=== PATIENT | male | born 1960 | race Asian ===

== ENCOUNTER 2020-09-08 10:22 | Inpatient (IN) | payer OTHER ==
[~2020-09-08] VITALS: Ht 182.9 cm; Wt 73.0 kg
[2020-09-08] MEDS ORDERED: IV NS 0.9% 500 ML IV ONE (10:30)
--- NOTE | 2020-09-08 10:30 | NUR ---
[id number] frm snf for noted ams. covid + 2 days ago. hypotensive area captain. Hypoxic satting 80's on ra. trach. bg 180 area captain. Patient a/ox3, placed on 7LPM via t-piece. No distress noted.
--- NOTE | 2020-09-08 11:00 | NUR ---
covid swab sent. blood drawn and sent to lab.
[2020-09-08 11:07] LABS: BASOPHILS % (AUTO) 0.1 % (0.0-2.0); HEMATOCRIT 29 % (39-51); HEMOGLOBIN 9.2 g/dL (13.5-17.5); LYMPHOCYTES # (AUTO) 0.6 /CMM (0.8-4.8); LYMPHOCYTES % (AUTO) 14.4 % (20.0-44.0); MEAN CORPUSCULAR HGB CONC 32 g/dl (31.0-36.0); MEAN CORPUSCULAR VOLUME 91 fL (80-96); MONOCYTES # (AUTO) 0.4 /CMM (0.1-1.30); MONOCYTES % (AUTO) 9.3 % (2.0-12.0); NEUTROPHILS # (AUTO) 3.2 /CMM (1.8-8.9); NEUTROPHILS % (AUTO) 76.2 % (43.0-81.0); PLATELET COUNT (AUTO) 162 /CMM (150-450); RED BLOOD CELL COUNT(AUTO) 3.14 MIL/uL (4.5-6.0); WHITE BLOOD COUNT (AUTO) 4.2 K/uL (4.3-11.0)
[2020-09-08 11:17] LABS: CALCIUM, SERUM 8.2 mg/dL (8.5-10.1); CREATININE 1.3 mg/dL (0.6-1.3); POTASSIUM 4.4 mmol/L (3.5-5.1)
[2020-09-08 11:29] LABS: ALBUMIN 2.1 g/dL (3.4-5.0); BILIRUBIN,TOTAL 0.3 mg/dL (0.2-1.0); TOTAL PROTEIN, SERUM 6.5 g/dL (6.4-8.2)
[2020-09-08] MEDS ORDERED: REMDESIVIR (CHARGED) 200 MG, *LOADING DOSE 1 EA in IV NS 0.9% 210 ML IV ONE ×2 (12:00→19:30)
--- NOTE | 2020-09-08 12:00 | NUR ---
rapid covid positive.
--- NOTE | 2020-09-08 12:08 | NUR ---
MOVE SHEET SUBMITTED
[2020-09-08] MEDS ORDERED: DOCU-264 PO (12:25)
[2020-09-08] MEDS ORDERED: MIRT30TA7 PO (12:25)
[2020-09-08] MEDS ORDERED: DIVA500T54 PO (12:25)
[2020-09-08] MEDS ORDERED: QUET400T53 PO (12:25)
[2020-09-08] MEDS ORDERED: METF-442 PO (12:25)
[2020-09-08] MEDS ORDERED: LEVOFLOXACIN 750 MG /D5W 150ML 150 ML IV ONE ×2 (12:30→12:56)
[2020-09-08] MEDS ORDERED: PIPERACILLIN /TAZOBACTAM 3.375 G in IV D5W 50 ML IV ONE (12:30)
[2020-09-08] MEDS ORDERED: BUPR-319 PO (13:08)
[2020-09-08 13:13] LABS: C-REACTIVE PROTEIN 17.3 mg/dL (0.0-0.9)
[2020-09-08] MEDS ORDERED: PANT40TA49 PO (13:28)
[2020-09-08] MEDS ORDERED: AMIN887L PO (13:28)
[2020-09-08] MEDS ORDERED: QUET300T2 PO (13:28)
[2020-09-08] MEDS ORDERED: BUPR150T10 PO (13:28)
[2020-09-08] MEDS ORDERED: HEPA1DIS12 SUBCUT (13:28)
[2020-09-08] MEDS ORDERED: LORA-259 PO (13:28)
[2020-09-08] MEDS ORDERED: MAGN400T8 PO (13:28)
[2020-09-08] MEDS ORDERED: MORP30TA59 PO (13:28)
[2020-09-08] MEDS ORDERED: DOCU-141 PO (13:28)
[2020-09-08] MEDS ORDERED: INSU100V39 SQ (13:28)
[2020-09-08] MEDS ORDERED: MORP10SY PO (13:28)
[2020-09-08] MEDS ORDERED: ZOLP5TAB2 PO (13:28)
[2020-09-08] MEDS ORDERED: IPRA3AMP23 IH (13:28)
[2020-09-08] MEDS ORDERED: BENZ-13 PO (13:28)
[2020-09-08] MEDS ORDERED: ONDA4TAB11 PO (13:28)
[2020-09-08] MEDS ORDERED: MELA3CAP2 PO (13:28)
[2020-09-08] MEDS ORDERED: GLIP5TAB13 PO (13:28)
[2020-09-08] MEDS ORDERED: FERR325T23 PO (13:28)
--- NOTE | 2020-09-08 13:37 | NUR ---
CALLED DR. OMORE'S EXCHANGE, NO ANSWER, LEFT A MESSAGE.
[2020-09-08 13:38] LABS: ABG BASE EXCESS 2.5 mmol/L; ABG OXYGEN SATURATION 96.5 % (92.0-98.5); ABG PCO2 35.1 mmHg (35.0-45.0); ABG PH 7.485 (7.350-7.450); ABG PO2 94.7 mmHg (75.0-100.0); AaDO2 150.1 mmHg; COHb 0.3 % (0.5-1.5); MetHb 0.5 % (0.0-1.5); O2Hb 95.7 % (94.0-97.0); SITE, ABG Right Radial; VENT MODE, BG 5 L T-PIECE
[2020-09-08] MEDS ORDERED: DEXAMETHASONE SOD PHOSPHATE 10 MG/ML VIAL ONE (17:44)
[2020-09-08] MEDS ORDERED: CEFTRIAXONE 1GM BAG (ER ONLY) 50 ML IV ONE (17:44)
[2020-09-08] MEDS: CEFTRIAXONE 1 G in IV D5W 50 ML IV SCH (17:48)
[2020-09-08] MEDS ORDERED: ENOXAPARIN SODIUM 40 MG/0.4 ML DISP.SYRIN SQ ONE (17:48)
[2020-09-08] MEDS: DEXAMETHASONE SOD PHOSPHATE 10 MG/ML VIAL IV SCH ×2 (17:48→18:07)
[2020-09-08] MEDS: ENOXAPARIN SODIUM 40 MG/0.4 ML DISP.SYRIN SQ SCH (17:53)
--- NOTE | 2020-09-08 19:23 | NUR ---
PATIENT RESTING, ALL NEEDS ATTENDED, KEPT COMFORTABLE, WILL CONTINUE TO MONITOR.
--- NOTE | 2020-09-08 23:50 | NUR ---
pt requesting ativan. med rec updated prior. per honey tariq to give ativan, phone order carried out./
[2020-09-09] MEDS ORDERED: LORAZEPAM INJ 2 MG/ML VIAL ONE ×2 (00:47→20:34)
[2020-09-09 06:08] LABS: HEMATOCRIT 29 % (39-51); HEMOGLOBIN 9.6 g/dL (13.5-17.5); LYMPHOCYTES # (AUTO) 0.3 /CMM (0.8-4.8); LYMPHOCYTES % (AUTO) 3.9 % (20.0-44.0); MEAN CORPUSCULAR HGB CONC 33 g/dl (31.0-36.0); MEAN CORPUSCULAR VOLUME 92 fL (80-96); MONOCYTES # (AUTO) 0.4 /CMM (0.1-1.30); MONOCYTES % (AUTO) 4.5 % (2.0-12.0); NEUTROPHILS % (AUTO) 91.6 % (43.0-81.0); PLATELET COUNT (AUTO) 163 /CMM (150-450); RED BLOOD CELL COUNT(AUTO) 3.19 MIL/uL (4.5-6.0); WHITE BLOOD COUNT (AUTO) 8.7 K/uL (4.3-11.0)
[2020-09-09 06:24] LABS: ALBUMIN 2.3 g/dL (3.4-5.0); BILIRUBIN,DIRECT 0.2 mg/dL (0.0-0.2); BILIRUBIN,TOTAL 0.3 mg/dL (0.2-1.0); CALCIUM, SERUM 8.1 mg/dL (8.5-10.1); CREATININE 1.2 mg/dL (0.6-1.3); POTASSIUM 4.5 mmol/L (3.5-5.1); TOTAL PROTEIN, SERUM 7.2 g/dL (6.4-8.2)
--- NOTE | 2020-09-09 08:00 | NUR ---
PATIENT Edouard/OX4, ON 10LPM VIA T-PIECE. NO DISTRESS NOTED. NEEDS ATTENDED. ASSISTED WITH URINAL. Addendum: 09/09/20 at 1616 by BLAKEANCES CORRECTION: 6LPM NOT 10LPM
[2020-09-09] MEDS ORDERED: DEXAMETHASONE SOD PHOSPHATE 10 MG/ML VIAL ONE (08:28)
[2020-09-09] MEDS: DEXAMETHASONE SOD PHOSPHATE 10 MG/ML VIAL IV SCH (09:06)
--- NOTE | 2020-09-09 12:00 | NUR ---
PATIENT RESTING, NO DISTRESS NOTED.
--- NOTE | 2020-09-09 15:00 | NUR ---
INFORMED MAITE WEISS RE: ADMIT ORDERS AND MED RECONCILIATION.
[2020-09-09] MEDS ORDERED: MORPHINE SULFATE INJ 4 MG/ML DISP.SYRIN ONE (15:59)
[2020-09-09] MEDS ORDERED: CEFTRIAXONE 1 G in IV D5W 50 ML IV SCH (16:00)
[2020-09-09] MEDS ORDERED: DOCUSATE SODIUM 100 MG CAPSULE PO PRN (16:00)
[2020-09-09] MEDS ORDERED: ONDANSETRON HCL/PF 4 MG/2 ML VIAL IVP PRN (16:00)
[2020-09-09] MEDS ORDERED: DEXTROSE 50%-WATER 50 ML DISP.SYRIN IV PRN (16:00)
[2020-09-09] MEDS ORDERED: DEXAMETHASONE SOD PHOSPHATE 10 MG/ML VIAL IV SCH (16:00)
[2020-09-09] MEDS ORDERED: Z GUARD REMEDY 2 OZ OINT TP PRN (16:00)
[2020-09-09] MEDS ORDERED: ACETAMINOPHEN 325 MG TABLET PO PRN (16:00)
[2020-09-09] MEDS ORDERED: MORPHINE SULFATE INJ 2 MG/ML DISP.SYRIN IV PRN (16:00)
[2020-09-09] MEDS: BLOOD SUGAR DIAGNOSTIC 1 EACH STRIP IN SCH ×2 (16:07→21:32)
--- NOTE | 2020-09-09 16:16 | NUR ---
PATIENT A/OX4, STS HE'S NOT HUNGRY, GIVEN CRANBERRY JUICE. NEEDS ATTENDED. GIVEN PEN AND PAPER FOR COMMUNICATION. PATIENT TOLERATING 6LPM VIA NC AT THIS TIME.
[2020-09-09] MEDS ORDERED: CEFTRIAXONE 1GM BAG (ER ONLY) 50 ML IV ONE (16:39)
[2020-09-09] MEDS ORDERED: DIVALPROEX SODIUM 500 MG TABLET.DR PO ONE (16:39)
[2020-09-09] MEDS ORDERED: ENOXAPARIN SODIUM 40 MG/0.4 ML DISP.SYRIN SQ ONE (16:40)
[2020-09-09] MEDS: INSULIN REGULAR, HUMAN 100 UNIT/ML 3 ML VIAL SQ PRN ×2 (16:43→22:17)
--- NOTE | 2020-09-09 16:43 | NUR ---
NO INSULIN GIVEN, PT STS HE'S NOT HUNGRY AND STILL CLARIFYING DIET ORDER FROM DR. MAITE WEISS.
[2020-09-09] MEDS: DIVALPROEX SODIUM 500 MG TABLET.DR PO SCH (17:02)
[2020-09-09] MEDS: CEFTRIAXONE 1 G in IV D5W 50 ML IV SCH (17:02)
[2020-09-09] MEDS: ENOXAPARIN SODIUM 40 MG/0.4 ML DISP.SYRIN SQ SCH (17:05)
[2020-09-09] MEDS ORDERED: LORAZEPAM 0.5 MG TABLET ONE (17:48)
[2020-09-09] MEDS: LORAZEPAM 1 MG TABLET PO PRN (17:48)
[2020-09-09] MEDS ORDERED: VANCOMYCIN 1.25 GM in IV D5W 250 ML IV ONE (18:00)
[2020-09-09] MEDS ORDERED: REMDESIVIR (CHARGED) 100 MG in IV NS 0.9% 230 ML IV SCH (19:30)
--- NOTE | 2020-09-09 19:40 | NUR ---
REC'D PT IN AWAKE AND ALERT. SEEMS VERY ANXIOUS AND UNABLE TO STAY STILL IN BED . REQUESTING ATIVAN AND MORPHIN. TRACH IN PLACE . OLIVIA WELL. NO SOB NOTED. VSS. PT WAS ADVISED TO REMAIN CALM AND IN BED .PT WAS ASSISTED TO GET COMFORTABLE IN BED W/ HOB ELEVATED. NEEDS ATTENDED. BED IN LOW LOCKED POSITION. WILL CONT TO MONITOR
--- NOTE | 2020-09-09 20:00 | NUR ---
CALLED LUCIA LEY FOR AN ORDER FOR ATIVAN
[2020-09-09] MEDS: REMDESIVIR (CHARGED) 100 MG in IV NS 0.9% 100 ML IV SCH (20:02)
[2020-09-09] MEDS ORDERED: LORAZEPAM INJ 2 MG/ML VIAL IV ONE ×2 (20:30)
[2020-09-09] MEDS ORDERED: MORPHINE SULFATE SR 15 MG TABLET.SA ONE (20:49)
[2020-09-09] MEDS ORDERED: HEPARIN SODIUM, PORCINE 5000 UNITS/1 ML VIAL SQ SCH (21:00)
[2020-09-09] MEDS: INSULIN GLARGINE, 100 UNIT/ML CARTRIDGE SQ SCH (21:20)
--- NOTE | 2020-09-09 21:20 | NUR ---
pt extubated himself.called RT to put the trach back in. pt was educated to be carefull with his movement and avoid pulling out his trach
[2020-09-09] MEDS: MORPHINE SULFATE SR 15 MG TABLET.SA PO SCH (21:32)
[2020-09-09] MEDS: QUETIAPINE FUMARATE 100 MG TABLET PO SCH (21:32)
--- NOTE | 2020-09-09 21:33 | NUR ---
RT pt decannulated. rt called to bedside. trach tube shiley 6 cuffed dct inserted. minimal bleeding noted. no resp distress noted. spare trach at bedside. jana easley, aware.
--- NOTE | 2020-09-10 | NUR ---
pt extubated himself again/ called RT to put the trach back in
--- NOTE | 2020-09-10 00:01 | NUR ---
RT pt decannulated second time. rt called to bedside. shiley 6 cuffed dct inserted. minimal bleeding noted. spare trach placed at bedside. jana easley, notified.
[2020-09-10] MEDS ORDERED: DEXTROSE 50%-WATER 50 ML DISP.SYRIN IV PRN (00:30)
[2020-09-10 05:06] LABS: ABG BASE EXCESS 6.5 mmol/L; ABG OXYGEN SATURATION 97.5 % (92.0-98.5); ABG PH 7.522 (7.350-7.450); ABG PO2 108.3 mmHg (75.0-100.0); AaDO2 163.2 mmHg; COHb 0.3 % (0.5-1.5); MetHb 0.3 % (0.0-1.5); O2Hb 96.9 % (94.0-97.0); SITE, ABG Right Brachial; VENT MODE, BG 6L T-piece
[2020-09-10 06:16] LABS: BASOPHILS % (AUTO) 0.4 % (0.0-2.0); HEMATOCRIT 29 % (39-51); HEMOGLOBIN 9.7 g/dL (13.5-17.5); LYMPHOCYTES # (AUTO) 0.4 /CMM (0.8-4.8); LYMPHOCYTES % (AUTO) 5.2 % (20.0-44.0); MEAN CORPUSCULAR HGB CONC 34 g/dl (31.0-36.0); MEAN CORPUSCULAR VOLUME 90 fL (80-96); MONOCYTES # (AUTO) 0.5 /CMM (0.1-1.30); MONOCYTES % (AUTO) 7.1 % (2.0-12.0); NEUTROPHILS # (AUTO) 6.7 /CMM (1.8-8.9); NEUTROPHILS % (AUTO) 87.3 % (43.0-81.0); PLATELET COUNT (AUTO) 196 /CMM (150-450); RED BLOOD CELL COUNT(AUTO) 3.22 MIL/uL (4.5-6.0); WHITE BLOOD COUNT (AUTO) 7.7 K/uL (4.3-11.0)
[2020-09-10] MEDS: VANCOMYCIN HCL 0.75 GM in IV D5W 250 ML IV SCH ×3 (06:18→21:32)
--- NOTE | 2020-09-10 06:18 | NUR ---
new iv line started on CLIFTON 20G w/ good blood return.
[2020-09-10 06:35] LABS: ALBUMIN 2.2 g/dL (3.4-5.0); BILIRUBIN,TOTAL 0.2 mg/dL (0.2-1.0); CALCIUM, SERUM 8.8 mg/dL (8.5-10.1); CREATININE 0.8 mg/dL (0.6-1.3); MAGNESIUM 2.5 mg/dL (1.8-2.4); PHOSPHORUS 2.7 mg/dL (2.5-4.9); POTASSIUM 3.7 mmol/L (3.5-5.1)
--- NOTE | 2020-09-10 07:40 | NUR ---
ASSUME PATIENT CARE. RESTING IN BED. MAKES NEEDS KNOWN TO NURSE VIA WRITING. ON MONITOR W/ NOTED STABLE VITALS. AWAITING MD SYED.
[2020-09-10] MEDS ORDERED: DIVALPROEX SODIUM 500 MG TABLET.DR PO ONE ×3 (07:57→17:14)
[2020-09-10] MEDS ORDERED: DEXAMETHASONE SOD PHOSPHATE 10 MG/ML VIAL ONE (07:57)
[2020-09-10] MEDS ORDERED: glipiZIDE 10 MG TABLET ONE (07:58)
[2020-09-10] MEDS ORDERED: MORPHINE SULFATE IR 15 MG TABLET ONE (07:58)
[2020-09-10] MEDS: BLOOD SUGAR DIAGNOSTIC 1 EACH STRIP IN SCH ×4 (07:59→21:13)
[2020-09-10] MEDS: PROSOURCE / PROSTAT (PYXIS) 30 ML UDC PO SCH (08:05)
[2020-09-10] MEDS: DIVALPROEX SODIUM 500 MG TABLET.DR PO SCH ×3 (08:05→17:18)
[2020-09-10] MEDS: glipiZIDE 5 MG TABLET PO SCH (08:05)
[2020-09-10] MEDS: MORPHINE SULFATE SR 15 MG TABLET.SA PO SCH ×2 (08:05→22:43)
[2020-09-10] MEDS: DEXAMETHASONE SOD PHOSPHATE 10 MG/ML VIAL IV SCH (08:05)
[2020-09-10] MEDS: buPROPion SR 150 MG TABLET.ER PO SCH (08:16)
[2020-09-10] MEDS: INSULIN REGULAR, HUMAN 100 UNIT/ML 3 ML VIAL SQ PRN ×2 (08:17→21:34)
--- NOTE | 2020-09-10 15:16 | NUR ---
SISTER VELMA CALLED AND LEFT CONTACT #
[2020-09-10] MEDS ORDERED: CEFTRIAXONE 1GM BAG (ER ONLY) 50 ML IV ONE (18:03)
[2020-09-10] MEDS ORDERED: ENOXAPARIN SODIUM 40 MG/0.4 ML DISP.SYRIN SQ ONE (18:04)
[2020-09-10] MEDS: CEFTRIAXONE 1 G in IV D5W 50 ML IV SCH (18:12)
[2020-09-10] MEDS: ENOXAPARIN SODIUM 40 MG/0.4 ML DISP.SYRIN SQ SCH (18:13)
[2020-09-10] MEDS ORDERED: MORPHINE SULFATE INJ 4 MG/ML DISP.SYRIN ONE (18:44)
[2020-09-10] MEDS: MORPHINE SULFATE INJ 4 MG/ML DISP.SYRIN IV PRN (18:52)
--- NOTE | 2020-09-10 18:52 | NUR ---
PT C/O 04/17 PAIN. PRN MEDS FOR MORPHINE GIVEN. SEE EMAR.
[2020-09-10] MEDS: REMDESIVIR (CHARGED) 100 MG in IV NS 0.9% 100 ML IV SCH (19:22)
--- NOTE | 2020-09-10 19:50 | NUR ---
REC'D PT IN BED , AWAKE AND ALERT. BREATHING EVENLY. TRACH IN PLACE. ON O2 AT 4L VIA TRACH MASK. OLIVIA WELL. NO SOB. NAD. NO C/.O PAIN OR DISCOMFORT AT THIS TIME. BED LOW LOCKED POSITION. HOB ELEVATED, SR X 2. CALL LIGHT WITHIN REACH. WILL CONT TO MONITOR.
--- NOTE | 2020-09-10 19:51 | NUR ---
REPORT GIVEN TO RABIA CAROLINA FOR TYESHA.
[2020-09-10] MEDS: INSULIN GLARGINE, 100 UNIT/ML CARTRIDGE SQ SCH (21:33)
[2020-09-10] MEDS ORDERED: QUETIAPINE FUMARATE 100 MG TABLET ONE (22:38)
[2020-09-10] MEDS: QUETIAPINE FUMARATE 100 MG TABLET PO SCH (22:43)
[2020-09-10] MEDS ORDERED: MORPHINE SULFATE SR 15 MG TABLET.SA ONE (22:45)
--- NOTE | 2020-09-11 03:15 | NUR ---
PATIENT IS STATING. "I WANT PAD ETHIOPIAN." SHORTLY AFTER, PATIENT STATES, "NEVERMIND". PATIENT IS AAOX3. NO SOB. BREATHING EVENLY AND UNLABORED ON 4L OF OXYGEN. PATIENT IS CONNECTED TO THE MONITOR. CALL LIGHT WITHIN REACH. PEN AND PAPER FOR COMMUNICATION BOARD.
[2020-09-11 05:47] LABS: BASOPHILS % (AUTO) 0.3 % (0.0-2.0); HEMATOCRIT 33 % (39-51); HEMOGLOBIN 10.6 g/dL (13.5-17.5); LYMPHOCYTES # (AUTO) 0.3 /CMM (0.8-4.8); MEAN CORPUSCULAR HGB CONC 33 g/dl (31.0-36.0); MEAN CORPUSCULAR VOLUME 90 fL (80-96); MONOCYTES # (AUTO) 0.5 /CMM (0.1-1.30); MONOCYTES % (AUTO) 9.2 % (2.0-12.0); NEUTROPHILS # (AUTO) 4.4 /CMM (1.8-8.9); NEUTROPHILS % (AUTO) 85.5 % (43.0-81.0); PLATELET COUNT (AUTO) 219 /CMM (150-450); RED BLOOD CELL COUNT(AUTO) 3.63 MIL/uL (4.5-6.0); WHITE BLOOD COUNT (AUTO) 5.2 K/uL (4.3-11.0)
[2020-09-11 06:10] LABS: ALBUMIN 2.5 g/dL (3.4-5.0); BILIRUBIN,DIRECT 0.1 mg/dL (0.0-0.2); BILIRUBIN,TOTAL 0.2 mg/dL (0.2-1.0); CREATININE 0.8 mg/dL (0.6-1.3); POTASSIUM 3.7 mmol/L (3.5-5.1); TOTAL PROTEIN, SERUM 7.7 g/dL (6.4-8.2)
[2020-09-11] MEDS: VANCOMYCIN HCL 0.75 GM in IV D5W 250 ML IV SCH ×3 (06:14→21:51)
--- NOTE | 2020-09-11 07:11 | NUR ---
REPORT GIVEN TO MISAEL CAROLINA FOR TYESHA.
[2020-09-11] MEDS: BLOOD SUGAR DIAGNOSTIC 1 EACH STRIP IN SCH ×4 (07:30→21:17)
[2020-09-11] MEDS ORDERED: DIVALPROEX SODIUM 500 MG TABLET.DR PO ONE ×3 (08:03→17:15)
[2020-09-11] MEDS ORDERED: DEXAMETHASONE SOD PHOSPHATE 10 MG/ML VIAL ONE (08:03)
[2020-09-11] MEDS ORDERED: glipiZIDE 10 MG TABLET ONE (08:03)
[2020-09-11] MEDS: DIVALPROEX SODIUM 500 MG TABLET.DR PO SCH ×3 (08:45→17:38)
[2020-09-11] MEDS: buPROPion SR 150 MG TABLET.ER PO SCH (08:45)
[2020-09-11] MEDS: glipiZIDE 5 MG TABLET PO SCH (08:45)
[2020-09-11] MEDS: DEXAMETHASONE SOD PHOSPHATE 10 MG/ML VIAL IV SCH (08:45)
[2020-09-11] MEDS ORDERED: MORPHINE SULFATE SR 15 MG TABLET.SA ONE (08:46)
[2020-09-11] MEDS: MORPHINE SULFATE SR 15 MG TABLET.SA PO SCH ×2 (08:54→21:51)
[2020-09-11] MEDS: PROSOURCE / PROSTAT (PYXIS) 30 ML UDC PO SCH (08:57)
[2020-09-11] MEDS: INSULIN REGULAR, HUMAN 100 UNIT/ML 3 ML VIAL SQ PRN ×3 (08:57→18:37)
--- NOTE | 2020-09-11 10:45 | NUR ---
patient in bed, on T-piece with 02 saturation of 96%. In no distress.
[2020-09-11] MEDS ORDERED: LORAZEPAM 0.5 MG TABLET ONE ×2 (12:32→19:48)
[2020-09-11] MEDS: LORAZEPAM 1 MG TABLET PO PRN ×2 (12:37→20:09)
[2020-09-11] MEDS ORDERED: ENOXAPARIN SODIUM 40 MG/0.4 ML DISP.SYRIN SQ ONE (17:15)
[2020-09-11] MEDS: ENOXAPARIN SODIUM 40 MG/0.4 ML DISP.SYRIN SQ SCH (17:39)
[2020-09-11] MEDS: CEFTRIAXONE 1 G in IV D5W 50 ML IV SCH (17:39)
[2020-09-11] MEDS: REMDESIVIR (CHARGED) 100 MG in IV NS 0.9% 100 ML IV SCH (18:30)
--- NOTE | 2020-09-11 19:30 | NUR ---
REC'D PT IN AWAKE AND ALERT. SEEMS VERY ANXIOUS AND UNABLE TO STAY STILL IN BED . . TRACH IN PLACE. ON O2 AT 6LPM . OLIVIA WELL. NO SOB NOTED. VSS. PT WAS ADVISED TO REMAIN CALM AND IN BED .PT WAS ASSISTED TO GET COMFORTABLE IN BED W/ HOB ELEVATED. NEEDS ATTENDED. BED IN LOW LOCKED POSITION. WILL CONT TO MONITOR
--- NOTE | 2020-09-11 20:09 | NUR ---
PT NOTED ANXIOUS AND AGITATED. CONSTNATLY MOVING IN BED. ATIVAN PO GIVEN ORDERED .WILL CONT TO MONITOR ,
[2020-09-11] MEDS: QUETIAPINE FUMARATE 100 MG TABLET PO SCH (21:51)
[2020-09-11] MEDS: INSULIN GLARGINE, 100 UNIT/ML CARTRIDGE SQ SCH (21:52)
--- NOTE | 2020-09-11 23:35 | NUR ---
pt pulled out his iv line. a new IV line started on chidi 20g w/ good blood return. will cont to monitor ,
--- NOTE | 2020-09-12 02:17 | NUR ---
Patient is resting comfortably in bed with eyes closed. Easily aroused. VSS
--- NOTE | 2020-09-12 03:43 | NUR ---
report given to nehemiah on first floor
--- NOTE | 2020-09-12 04:29 | NUR ---
Patient is resting comfortably in bed with eyes closed. Easily aroused. VSS
[2020-09-12] MEDS: VANCOMYCIN HCL 0.75 GM in IV D5W 250 ML IV SCH ×3 (06:37→21:03)
--- NOTE | 2020-09-12 06:55 | NUR ---
pt was transferred to 102 under acls.
[2020-09-12 06:56] LABS: BASOPHILS % (AUTO) 0.1 % (0.0-2.0); HEMATOCRIT 31 % (39-51); HEMOGLOBIN 10.2 g/dL (13.5-17.5); LYMPHOCYTES # (AUTO) 0.5 /CMM (0.8-4.8); LYMPHOCYTES % (AUTO) 13.8 % (20.0-44.0); MEAN CORPUSCULAR HGB CONC 33 g/dl (31.0-36.0); MEAN CORPUSCULAR VOLUME 90 fL (80-96); MONOCYTES # (AUTO) 0.5 /CMM (0.1-1.30); MONOCYTES % (AUTO) 14.4 % (2.0-12.0); NEUTROPHILS # (AUTO) 2.5 /CMM (1.8-8.9); NEUTROPHILS % (AUTO) 71.7 % (43.0-81.0); PLATELET COUNT (AUTO) 188 /CMM (150-450); RED BLOOD CELL COUNT(AUTO) 3.43 MIL/uL (4.5-6.0); WHITE BLOOD COUNT (AUTO) 3.5 K/uL (4.3-11.0)
[2020-09-12 07:37] LABS: ALBUMIN 2.2 g/dL (3.4-5.0); BILIRUBIN,DIRECT 0.1 mg/dL (0.0-0.2); BILIRUBIN,TOTAL 0.2 mg/dL (0.2-1.0); CALCIUM, SERUM 8.5 mg/dL (8.5-10.1); CREATININE 0.7 mg/dL (0.6-1.3); POTASSIUM 3.9 mmol/L (3.5-5.1); TOTAL PROTEIN, SERUM 6.6 g/dL (6.4-8.2)
--- NOTE | 2020-09-12 07:44 | NUR ---
RN OPENING NOTES PATIENT WAS RECEIVED IN BED. AOX1, CONFUSED, AND RESTLESS. SKIN IS IN TACT. TRACHEOSTOMY AND SUCTION EQUIPMENT ARE IN PLACE. 2 LITERS OF OXYGEN BEING ADMINISTERED VIA TRACH. VITAL SIGNS ARE NORMAL. 3 SIDE RAILS ARE RAISED. BED IS IN THE LOWEST POSITION, CALL PIERRE IS WITHIN REACH, AND ALL HOSPITAL SAFETY PRECAUTIONS ARE BEING FOLLOWED. Addendum: 09/12/20 at 0753 by NAE MOYA RN AOX3
[2020-09-12] MEDS: MORPHINE SULFATE SR 15 MG TABLET.SA PO SCH ×3 (08:38→21:02)
[2020-09-12] MEDS: buPROPion SR 150 MG TABLET.ER PO SCH ×2 (08:39→09:20)
[2020-09-12] MEDS: DIVALPROEX SODIUM 500 MG TABLET.DR PO SCH ×4 (08:39→16:53)
[2020-09-12] MEDS: DEXAMETHASONE SOD PHOSPHATE 10 MG/ML VIAL IV SCH (08:39)
[2020-09-12] MEDS: PROSOURCE / PROSTAT (PYXIS) 30 ML UDC PO SCH ×2 (08:45→09:00)
[2020-09-12] MEDS: glipiZIDE 5 MG TABLET PO SCH ×2 (08:46→09:00)
[2020-09-12] MEDS: BLOOD SUGAR DIAGNOSTIC 1 EACH STRIP IN SCH ×4 (09:04→21:47)
[2020-09-12 09:09] VITALS: BP 93/60
--- NOTE | 2020-09-12 09:20 | NUR ---
MANAGER INTEL NOTES PATEINT EXTREMELY AGITATED TRYING TO GET OUT OF BED REMOVING TRACH AND IV LINE. AT RISK FOR FALL. DOCTOR AMILCAR AT BED SIDE AWARE OF PATIENT CONDITION AND ORDERED SOFT RESTRAINTS AND ATIVAN 1MG.
[2020-09-12] MEDS ORDERED: LORAZEPAM INJ 2 MG/ML VIAL IV PRN (09:30)
--- NOTE | 2020-09-12 09:30 | NUR ---
STEWARDESSES TEACHER NOTE BLOOD SUGAR RECHECKED AT 144MG/DL AFTER GIVEN D50% VIA IV. WILL CONTINUE TO MONITOR
--- NOTE | 2020-09-12 10:21 | NUR ---
REFRACTORY BRICKLAYER NOTES PATIENT IS EXTREMELY AGITATED, NON COOPERATIVE AND REFUSED PO MEDICATIONS.
--- NOTE | 2020-09-12 12:36 | NUR ---
television director note assisted to bsc, able to urinate well also ate 10% of food , blood sugar 76 mg\dl orange juice and pudding given, will monitor
[2020-09-12 13:00] VITALS: BP 102/60
[2020-09-12] MEDS: LORAZEPAM INJ 2 MG/ML VIAL IV PRN (14:02)
--- NOTE | 2020-09-12 14:57 | NUR ---
television installer helper note on iv vanco as ordered, saturation 96% ,will monitor
[2020-09-12 16:00] VITALS: BP 134/81
--- NOTE | 2020-09-12 16:55 | NUR ---
HELD PATIENT'S INSULIN DUE TO HIS BLOOD SUGAR READINGS OF 51 AND 75 EARLIER ON 09/12 AND AT RISK FOR HYPOGLYCEMIA. WILL CONTINUE TO MONITOR.
[2020-09-12 17:00] VITALS: BP 134/81
[2020-09-12] MEDS: CEFTRIAXONE 1 G in IV D5W 50 ML IV SCH (17:08)
[2020-09-12] MEDS: ENOXAPARIN SODIUM 40 MG/0.4 ML DISP.SYRIN SQ SCH (17:12)
--- NOTE | 2020-09-12 18:28 | NUR ---
RN CLOSING NOTE PATIENT IS LYING IN BED. PATIENT IS RESTLESS AND UNCOOPERATIVE. PATIENT IS AOX2. PATIENT IS ON 2L O2 VIA TPIECE. SUCTION EQUIPMENT IS AT THE BEDSIDE. VITAL SIGNS ARE WITHIN NORMAL RANGE. PATIENT HAS A URINAL AT THE BEDSIDE. SOFT RESTRAINTS ARE IN PLACE BILATERALLY. CLIFTON #20 IS INTACT AND PATENT WITH NO SIGNS OF INFILTRATION. BED IS IN THE LOWEST POSITION, CALL PIERRE WITHIN REACH, AND ALL HOSPITAL SAFETY MEASURES ARE WITHIN PLACE. Addendum: 09/12/20 at 1835 by NAE MOYA RN WILL ENDORSE TO THE RADIOSONDE OPERATOR RN.
--- NOTE | 2020-09-12 19:10 | NUR ---
RECEIVED PT ON BED ON TRACH AND O2 2L SPO2 98% PT IS AGITATED WITH BILATERAL WRIST RESTRAINTS CIRCULATION WAS CHECKED PT IS MOUTHING WORDS WITH LITTLE CONFUSION, HAVE LEFT AC # 20 PATENT AND FLUSHED, BED ON LOWEST POSITION AND LOCKED BED ALARM ON, CALL LIGHT WITHIN REACH WILL CONT TO MONITOR
--- NOTE | 2020-09-12 19:15 | NUR ---
REMDESIVIR HAS NOT ARRIVED FROM PHARMACY.
[2020-09-12] MEDS: REMDESIVIR (CHARGED) 100 MG in IV NS 0.9% 100 ML IV SCH (19:22)
[2020-09-12] MEDS ORDERED: PHENYLEPHRINE 100 MG in IV NS 0.9% 240 ML IV PRN (20:00)
[2020-09-12 21:00] VITALS: BP 117/84
[2020-09-12] MEDS: QUETIAPINE FUMARATE 100 MG TABLET PO SCH (21:03)
[2020-09-12] MEDS: INSULIN REGULAR, HUMAN 100 UNIT/ML 3 ML VIAL SQ PRN (21:47)
[2020-09-13 01:00] VITALS: BP 113/86
[2020-09-13] MEDS: MORPHINE SULFATE INJ 4 MG/ML DISP.SYRIN IV PRN (04:15)
[2020-09-13 05:00] VITALS: BP 120/92
[2020-09-13] MEDS: VANCOMYCIN HCL 0.75 GM in IV D5W 250 ML IV SCH ×3 (05:41→22:00)
[2020-09-13] MEDS: LORAZEPAM INJ 2 MG/ML VIAL IV PRN ×2 (06:15→14:00)
[2020-09-13] MEDS: INSULIN REGULAR, HUMAN 100 UNIT/ML 3 ML VIAL SQ PRN ×3 (06:38→21:16)
[2020-09-13] MEDS: BLOOD SUGAR DIAGNOSTIC 1 EACH STRIP IN SCH ×4 (06:38→21:16)
[2020-09-13 06:46] LABS: BASOPHILS % (AUTO) 0.1 % (0.0-2.0); HEMATOCRIT 33 % (39-51); LYMPHOCYTES # (AUTO) 0.4 /CMM (0.8-4.8); LYMPHOCYTES % (AUTO) 14.3 % (20.0-44.0); MEAN CORPUSCULAR HGB CONC 33 g/dl (31.0-36.0); MEAN CORPUSCULAR VOLUME 90 fL (80-96); MONOCYTES # (AUTO) 0.4 /CMM (0.1-1.30); MONOCYTES % (AUTO) 13.2 % (2.0-12.0); NEUTROPHILS # (AUTO) 2.1 /CMM (1.8-8.9); NEUTROPHILS % (AUTO) 72.4 % (43.0-81.0); PLATELET COUNT (AUTO) 223 /CMM (150-450); RED BLOOD CELL COUNT(AUTO) 3.72 MIL/uL (4.5-6.0); WHITE BLOOD COUNT (AUTO) 2.9 K/uL (4.3-11.0)
--- NOTE | 2020-09-13 07:31 | NUR ---
PT ON BED ON AND OFF SLEEP, SOMETIMES SITTING ON BED, MORE CALM AFTER THE BILATERAL WRIST RESTRAINTS WAS HELD, MORPHINE PRN GIVEN @ 0415 DUE TO COMPLAINT OF PAIN, ATIVAN IV PRN WAS GIVEN @ 0615 DUE TO ANXIETY SPO2 98% VIA TPIECE 2L O2 AND TRACH, ALL NEEDS ATTENDED BED ON LOWEST POSITION AND LOCKED SIDE RAILS UP X4 CALL LIGHT WITHIN REACH BED ALARM ON WILL ENDORSED TO AM SHIFT NURSE
[2020-09-13 07:52] LABS: CALCIUM, SERUM 8.7 mg/dL (8.5-10.1); CREATININE 0.8 mg/dL (0.6-1.3); MAGNESIUM 2.3 mg/dL (1.8-2.4); PHOSPHORUS 2.9 mg/dL (2.5-4.9); POTASSIUM 3.3 mmol/L (3.5-5.1)
--- NOTE | 2020-09-13 08:01 | NUR ---
RN OPENING NOTES PATIENT RECEIVED IN BED AND HOB RAISED TO SEMI FOWLERS POSITION. PATIENT'S T TUBE IS IN PLACE AND RECEIVING 2L OF O2. PATIENT IS AOX3 AND AGITATED. SKIN IS INTACT. LAC #20 IS INTACT, PATENT, AND HAS NO SIGNS OF INFILTRATION. BED IS AT THE LOWEST POSITION, 3 SIDE RAILS RAISED, CALL PIERRE WITHIN REACH, AND ALL HOSPITAL SAFETY PRECAUTIONS ARE BEING FOLLOWED. WILL CONTINUE TO MONITOR THROUGHOUT SHIFT.
[2020-09-13 09:00] VITALS: BP 114/93
[2020-09-13] MEDS: DEXAMETHASONE SOD PHOSPHATE 10 MG/ML VIAL IV SCH (09:14)
[2020-09-13] MEDS: MORPHINE SULFATE SR 15 MG TABLET.SA PO SCH ×2 (09:14→20:56)
[2020-09-13] MEDS: DIVALPROEX SODIUM 500 MG TABLET.DR PO SCH ×3 (09:14→17:15)
[2020-09-13] MEDS ORDERED: POTASSIUM CHLORIDE 20 MEQ TAB.PRT.SR PO SCH (12:00)
--- NOTE | 2020-09-13 12:34 | NUR ---
VOCATIONAL TRAINER NOTE PATIENT'S GLUCOSE WAS 77. ORANGE JUICE WAS ADMINISTERED. WILL CONTINUE TO MONITOR.
[2020-09-13 13:00] VITALS: BP 128/86
[2020-09-13 17:00] VITALS: BP 127/74
[2020-09-13] MEDS: ENOXAPARIN SODIUM 40 MG/0.4 ML DISP.SYRIN SQ SCH (17:14)
[2020-09-13] MEDS: CEFTRIAXONE 1 G in IV D5W 50 ML IV SCH (17:15)
--- NOTE | 2020-09-13 19:02 | NUR ---
RN CLOSING NOTE PATIENT IN BED AND HOB RAISED TO SEMI FOWLERS POSITION. PATIENT'S T TUBE IS IN PLACE AND RECEIVING 4L OF O2. PATIENT IS AOX2 AND AGITATED. BILATERAL SOFT RESTRAINTS APPLIED. SKIN IS INTACT. LAC #20 IS INTACT, PATENT, AND HAS NO SIGNS OF INFILTRATION. BED IS AT THE LOWEST POSITION, 3 SIDE RAILS RAISED, CALL PIERRE WITHIN REACH, AND ALL HOSPITAL SAFETY PRECAUTIONS ARE BEING FOLLOWED. WILL ENDORSE TO SHELL MOLD BONDER NURSE JERMAINE.
--- NOTE | 2020-09-13 19:05 | NUR ---
RECEIVED PT ON BED ON TRACH AND O2 2L SPO2 98% PT IS AGITATED WITH BILATERAL WRIST RESTRAINTS CIRCULATION WAS CHECKED PT IS MOUTHING WORDS , HAVE LEFT UPPER ARM # 20 PATENT AND FLUSHED, BED ON LOWEST POSITION AND LOCKED BED ALARM ON, CALL LIGHT WITHIN REACH WILL CONT TO MONITOR
[2020-09-13 21:00] VITALS: BP 127/91
[2020-09-13] MEDS: QUETIAPINE FUMARATE 100 MG TABLET PO SCH (21:03)
--- NOTE | 2020-09-13 21:49 | NUR ---
VANCOMYCIN IV NOT ADMINISTERED DUE TO VANCO TROUGH IS 25, CHARGE NURSE MADE AWARE WILL CON TO MONITOR THE PT
[2020-09-14 01:00] VITALS: BP 111/81
[2020-09-14 05:00] VITALS: BP 127/82
[2020-09-14] MEDS: VANCOMYCIN HCL 0.75 GM in IV D5W 250 ML IV SCH (05:25)
--- NOTE | 2020-09-14 07:05 | NUR ---
PT ON BED ON AND OFF SLEEP, SOMETIMES SITTING ON BED, SPO2 98% VIA TPIECE 2L O2 AND TRACH, ALL NEEDS ATTENDED BED ON LOWEST POSITION AND LOCKED SIDE RAILS UP X4 CALL LIGHT WITHIN REACH BED ALARM ON WILL ENDORSED TO AM SHIFT NURSE
--- NOTE | 2020-09-14 07:10 | NUR ---
RN OPENING NOTES RECEIVED PT IN BED. AGITATED, A/O X2. T TUBE IS IN PLACE WITH 2L OF O2, SATURATING @96%. SKIN IS INTACT. L AC #20 INTACT, PATENT, AND FLUSHED. NO PAIN REPORTED AT THIS TIME. SAFETY MEASURES IMPLEMENTED. CALL LIGHT WITHIN REACH. BED LOCKED AND AT LOWEST POSITION WITH SIDE RAILS UP X3. WILL CONTINUE TO MONITOR.
[2020-09-14 07:23] LABS: BASOPHILS % (AUTO) 0.1 % (0.0-2.0); HEMATOCRIT 33 % (39-51); HEMOGLOBIN 10.7 g/dL (13.5-17.5); LYMPHOCYTES # (AUTO) 0.6 /CMM (0.8-4.8); LYMPHOCYTES % (AUTO) 17.7 % (20.0-44.0); MEAN CORPUSCULAR HGB CONC 33 g/dl (31.0-36.0); MEAN CORPUSCULAR VOLUME 90 fL (80-96); MONOCYTES # (AUTO) 0.4 /CMM (0.1-1.30); MONOCYTES % (AUTO) 12.1 % (2.0-12.0); NEUTROPHILS # (AUTO) 2.2 /CMM (1.8-8.9); NEUTROPHILS % (AUTO) 70.1 % (43.0-81.0); PLATELET COUNT (AUTO) 208 /CMM (150-450); RED BLOOD CELL COUNT(AUTO) 3.63 MIL/uL (4.5-6.0); WHITE BLOOD COUNT (AUTO) 3.1 K/uL (4.3-11.0)
[2020-09-14] MEDS: BLOOD SUGAR DIAGNOSTIC 1 EACH STRIP IN SCH ×2 (07:30→12:00)
[2020-09-14 07:46] LABS: CALCIUM, SERUM 8.7 mg/dL (8.5-10.1); CREATININE 0.8 mg/dL (0.6-1.3); MAGNESIUM 2.3 mg/dL (1.8-2.4); PHOSPHORUS 3.1 mg/dL (2.5-4.9); POTASSIUM 3.7 mmol/L (3.5-5.1)
--- NOTE | 2020-09-14 08:00 | NUR ---
RN NOTES BLOOD SUGAR OF 74. NO INSULIN COVERAGE
[2020-09-14] MEDS: DIVALPROEX SODIUM 500 MG TABLET.DR PO SCH ×2 (08:31→13:10)
[2020-09-14] MEDS: buPROPion SR 150 MG TABLET.ER PO SCH (08:31)
[2020-09-14] MEDS: DEXAMETHASONE SOD PHOSPHATE 10 MG/ML VIAL IV SCH (08:32)
[2020-09-14] MEDS: MORPHINE SULFATE SR 15 MG TABLET.SA PO SCH (08:32)
[2020-09-14 09:00] VITALS: BP 114/93
[2020-09-14] MEDS: PROSOURCE / PROSTAT (PYXIS) 30 ML UDC PO SCH (09:11)
[2020-09-14] MEDS ORDERED: DEXA6TAB6 PO (09:21)
[2020-09-14] MEDS ORDERED: ASPI-992 PO (09:21)
[2020-09-14 13:00] VITALS: BP 110/82
[2020-09-14] MEDS ORDERED: VANCOMYCIN HCL 0.75 GM in IV D5W 250 ML IV SCH (14:00)
--- NOTE | 2020-09-14 16:30 | NUR ---
RN NOTES SISTER CALLED WITH REGARDS TO THE PHONE OF THE PT. SAID STAFF FROM [facility] BROUGHT IT TO ER 2 NIGHTS PRIOR. NOT ON BELONGINGS LIST. NOT IN THE ROOM EITHER. CALLED ER TO CONFIRM BUT PHONE IS NOT THERE. CHARGE NURSE AWARE.
--- NOTE | 2020-09-14 17:00 | NUR ---
RN CLOSING NOTES DISCHARGED PT TO [facility] ACCOMPANIED BY AMBULANCE CREW. GAVE REPORT TO MARVIN CAROLINA. SKIN IS INTACT. NO PAIN REPORTED AT THIS TIME. STABLE CONDITION. VS WNL.
== END 2020-09-14 17:00 | DRG 720 ==
LOC: ER 10:42 → TRANSITION 16:43 → TELE1 09-12 03:09
PROVIDERS: ADMIT Nurse Practitioner Acute Care; ATTEND Student in an Organized Health Care Education/Training Program
PROC: XW033E5 Introduction of Remdesivir Anti-infective into Peripheral Vein, Percutaneous Approach, New Technology Group 5 (ICD-10-PCS; principal; 2020-09-08)
PROC: XW13325 Transfusion of Convalescent Plasma (Nonautologous) into Peripheral Vein, Percutaneous Approach, New Technology Group 5 (ICD-10-PCS; 2020-09-09)
DX: A41.89 Other specified sepsis (principal); J96.01 Acute respiratory failure with hypoxia; U07.1 COVID-19; F31.9 Bipolar disorder, unspecified; E11.649 Type 2 diabetes mellitus with hypoglycemia without coma; E11.22 Type 2 diabetes mellitus with diabetic chronic kidney disease; D64.9 Anemia, unspecified; E86.0 Dehydration; G89.4 Chronic pain syndrome; J12.82 Pneumonia due to coronavirus disease 2019; N18.9 Chronic kidney disease, unspecified; K21.9 Gastro-esophageal reflux disease without esophagitis; Z85.21 Personal history of malignant neoplasm of larynx; Z93.0 Tracheostomy status; G93.49 Other encephalopathy; Z87.01 Personal history of pneumonia (recurrent); Z79.4 Long term (current) use of insulin; Z79.899 Other long term (current) drug therapy; Z79.51 Long term (current) use of inhaled steroids
CPT/HCPCS: 31720; 36415; 36600; 71045-TC; 80048-TC; 80053-TC; 80061-TC; 80076-TC; 80202-TC; 82550-TC; 82553; 82728-TC; 82803-TC; 82962-TC; 83605-TC; 83615-TC; 83735-TC; 83880; 84100-TC; 84484-TC; 85025-TC; 85378-TC; 85610-TC; 85730-TC; 86140-TC; 86850-TC; 87040-TC; 87081-TC; 94640-TC; 94761-TC; 94762-TC; 94799-TC; A4216; A4623; A7526; C9803; G0378; J0696; J1100; J1650; J1815; J1956; J2060; J2270; J2543; J3370; J7030; J7040; J7050; J7060; P9017-BL